=== PATIENT | female | born 1975 | race African-American/Black ===

== ENCOUNTER 2016-11-15 15:06 | Inpatient (IN) | payer BC ==
--- NOTE | ~2016-11-15 | DS ---
Discharge Summary [facility] [address] [place]. [address] NAME: SHERITA PATTERSON : 71 STATUS : DIS IN PAT#: [id number] AGE: 41 ADM/REG DATE : 11/15/16 MR#: [id number] REPORT SERV DATE: 11/20/16 DICTATED BY: DATE: REPORT STATUS : Draft TRANSCRIBED BY: MODL DATE: 11/19/16 ADMISSION DATE: 11/15/2016 DISCHARGE DATE: 11/19/2016 DISCHARGE DIAGNOSES: 1. Right upper lobe pneumonia suspected. 2. Human immunodeficiency virus/acquired immunodeficiency syndrome/pancytopenia. 3. Metastatic rectal cancer. 4. Hypoglycemia. 5. Hypotension, chronic. 6. Severe malnutrition/cachexia. 7. Thrush. CONSULTATIONS: Dr. Dinero, Palliative Care. PERTINENT TESTS AND PROCEDURES: 1. Chest x-ray, 11/15/2016, impression: New right upper lobe airspace disease consistent with pneumonia. Numerous small bilateral lung nodules consistent with metastatic disease. No pneumothorax or pleural effusions. 2. Chest x-ray, 11/17/2016, impression: No acute cardiopulmonary disease. Persistent right upper lobe airspace disease and pulmonary nodules. No significant change since 11/15/2016 imaging. 3. Two units packed red blood cells transfused, 11/15/2016. 4. One unit of platelets transfused, 11/16/2016. CHIEF COMPLAINT UPON ADMISSION: Need for blood transfusion. HOSPITAL COURSE: Please refer to history and physical dated 11/16/[address] Lamberto Jerez for complete details pertaining to the patient's initial presentation upon admission and health history. Briefly, the patient is a 41-year-old female, who is well known to our service, who presents with a complicated medical history to include metastatic rectal cancer, previously untreated HIV, and recent hospitalization for colovaginal fistula, status post ostomy. The patient was recently placed on hospice prior to this admission. The patient presented to the hospital on 11/15/2016 with complaints of coughing and request for "blood transfusion." 1. Likely right upper lobe pneumonia. The patient reported recent exposure to respiratory illness in her household prior to this admission. Chest x-ray obtained was suspicious for right upper lobe airspace disease consistent with pneumonia. The patient was initially placed on antibiotic, but refused treatment up until yesterday, at which time, the patient was placed on IV Zosyn. Sputum culture collected 11/17/2016 is pending. Final Gram stain on specimen indicates rare yeast, less than 25 epithelial cells, less than 10 white blood cells, few gram-positive bacilli, and few gram-negative bacilli. Procalcitonin is elevated and reported to be 5.43. The patient's antibiotic Discharge Summary [address] [place]. [address] NAME: SHERITA PATTERSON : 71 STATUS : DIS IN PAT#: [id number] AGE: 41 ADM/REG DATE : 11/15/16 MR#: [id number] REPORT SERV DATE: 11/20/16 DICTATED BY: DATE: REPORT STATUS : Draft TRANSCRIBED BY: MODL DATE: 11/19/16 therapy at discharge will be determined per hospice. 2. HIV/AIDS/pancytopenia. The patient is still refusing treatment with Stribild secondary to large pill size and complaints of difficulty swallowing. Upon admission, the patient's hemoglobin was reported to be 3.37. Since receiving 2 units of packed red blood cells on the 11/15/2016, hemoglobin has remained fairly stable and is reported to be 7.4 at the time of discharge. Platelets were reported to be 10 upon admission. The patient received one unit of platelets and initial response was increased to 89. However, since that time, platelets have continued to trend downward and are 27 on the day of discharge. No additional interventions will be initiated secondary to the patient's decision to resume care under hospice at home. 3. Metastatic rectal cancer. The patient has poor prognosis. She recently requested discharge from hospice care to be admitted to the hospital for evaluation of acute onset of cough and need for blood transfusion. The patient is not a candidate for any future treatment in the setting of metastatic rectal cancer and HIV/AIDS. Hospice will manage plan of care from this point forward. 4. Hypoglycemia. The patient has history of hypoglycemia related to poor p.o. intake and disease progression. The patient's blood glucose was reported to be 20 yesterday. The patient responded to treatment with 0.5 amp D50. Glucose is stable today at 130. 5. Sevelamer malnutrition/cachexia. This is secondary to metastatic rectal cancer and HIV/AIDS. We will continue to encourage p.o. intake if the patient can tolerate. 6. Thrush. This is chronic secondary to underlying disease state. The patient has received Diflucan and Mycostatin during this admission. 7. Chronic blood-loss anemia. This is secondary to persistent rectal bleeding secondary to rectal mass. DISCHARGE CONDITION: At the time of discharge, the patient is hemodynamically stable. However very frail, weak, and cachectic. DISCHARGE DIET: Regular diet as the patient can tolerate. DISCHARGE MEDICATIONS: Medications will be reconciled per the direction of hospice. DISCHARGE INSTRUCTIONS: The patient will return home with resumption of care under hospice. All future plans of care will be directed under their organization. ROGELIO/MICHAEL CLYDE Smiley / [id number] CC: Marcos Suarez WINIFRED
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
[~2016-11-15 15:06] MED LIST: ANTIBIOTICS PO; AUG875 PO; BACDS PO; CHEMO THERAPY IV; DIAPER TOP; DIL2TAB; EMBEDA PO; EMBEDA1 CA1 PO; EMBEDA1 CA2 PO; FLORASTOR250 MG PO; GOODY'S EX-STR1 EAC1 PO; MIRALAXPKT; MORPHINE; MSCONT15 PO; MYCOSCROI TOP; NORCO1 TA1 PO; NORCO1 TA2 PO; NORCO1 TAB PO; OXYCOD PO; PERCOCET1 TA4 PO; PRILO PO; ROXICODONE15 MG PO; SILVADENE1 % TOP; STRIBILD TABLE1 EACH PO; T PO; VALTREX5 PO; VITAMIN C100 MG PO; VITAMIN D3 PO; ZITH600 PO; ZOFRAN4 PO; ZYVOXPO PO
[2016-11-15 15:27] LABS: INTERNATIONAL NORMAL RATI 1.3 UNITS (-); PARTIAL THROMBO TIME 37.5 SEC (22.5-37.2)
[2016-11-15 15:29] LABS: PROTIME (NOT ORD) 16.4 SEC (12.0-14.5)
[2016-11-15 15:31] LABS: ER CBC TAT 0 Hrs 15 Mins; MEAN CORPUSCULAR HEMOGLOB 28.7 pg (26.0-34.0); RBC DISTRIBUTION WIDTH 18.9 % (12.0-16.0); WHITE BLOOD CELLS 2.6 10/3/uL (4.5-10.5)
[2016-11-15 15:35] LABS: BUN (BLOOD UREA NITROGEN) 27 MG/DL (6-23); CHEST PAIN PROFILE TAT 0 Hrs 19 Mins; CHLORIDE, SERUM 111 MMOL/L (96-112); CO2 (CARBON DIOXIDE) 26 MMOL/L (24-34); CREATININE 1.07 MG/DL (0.55-1.02); GFR AFRICAN AMERICAN 74 ML/MIN (>=60); GFR NON AFRICAN AMERICAN 64 ML/MIN (>=60); GLUCOSE, SERUM 73 MG/DL (60-99); POTASSIUM, SERUM 3.9 MMOL/L (3.5-5.3); SODIUM, SERUM 144 MMOL/L (135-148); TROPONIN I <0.02 NG/ML (<0.05)
[2016-11-15 15:41] LABS: HEMATOCRIT 11.2 % (36.0-48.0); HEMOGLOBIN 3.3 g/dL (12.0-16.0); MEAN CORPUS HGB CONC 29.5 g/dL (32.0-36.0); MEAN CORPUSCULAR VOLUME 97.4 fL (80-100); PLATELET COUNT 10 10/3/uL (150-400); RED CELL COUNT 1.15 10/6/uL (4.0-5.6)
[2016-11-15 15:44] LABS: MANUAL DIFF YES %
[2016-11-15] MEDS ORDERED: COMP10B PO (15:46)
[2016-11-15] MEDS ORDERED: DSS PO (15:46)
[2016-11-15] MEDS ORDERED: MSCONT100 PO (15:48)
[2016-11-15] MEDS ORDERED: NYS500UDL PO (15:49)
[2016-11-15] MEDS ORDERED: ROXICODONE30 MG PO (15:49)
[2016-11-15] MEDS ORDERED: STRIBILD TABLE1 EACH PO (15:50)
[2016-11-15] MEDS ORDERED: VITAMIN D2000 UNIT PO (15:50)
[2016-11-15] MEDS ORDERED: LIDOCAINE (15:52)
[2016-11-15 16:45] LABS: SEGMENTED NEUTROPHIL (0) 71 %; TOTAL NUCLEATED CELLS 100
[2016-11-15 16:46] LABS: ANISOCYTOSIS 1+ (5-10/OIF) (0-5/OIF); BAND NEUTROPHILS 18 %; ER DIFF TAT 1 Hrs 29 Mins; LYMPHOCYTES 5 %; LYMPHOCYTES ABSOLUTE (CALC) 0.13 10/3/uL (0.67-4.30); MONOCYTES 6 %; MONOCYTES ABSOLUTE (CALC) 0.16 10/3/uL (0.21-1.20); NEUTROPHILS ABSOLUTE (CALC) 2.31 10/3/uL (2.02-8.40); TOXIC GRANULATION 2+
[2016-11-15 16:47] LABS: POIKILOCYTOSIS 1+ (5-10/OIF) (0-5/OIF)
[2016-11-15] MEDS ORDERED: HYDROMORPHONE PO (17:41)
[2016-11-16 04:48] LABS: MEAN CORPUSCULAR HEMOGLOB 28.9 pg (26.0-34.0); MEAN PLATELET VOLUME 8.7 fL (9.2-13.0); RBC DISTRIBUTION WIDTH 19.8 % (12.0-16.0)
[2016-11-16 04:50] LABS: HEMATOCRIT 23.3 % (36.0-48.0); HEMOGLOBIN 7.9 g/dL (12.0-16.0); MANUAL DIFF YES %; MEAN CORPUS HGB CONC 33.9 g/dL (32.0-36.0); MEAN CORPUSCULAR VOLUME 85.3 fL (80-100); PLATELET COUNT 89 10/3/uL (150-400); RED CELL COUNT 2.73 10/6/uL (4.0-5.6); WHITE BLOOD CELLS 2.4 10/3/uL (4.5-10.5)
[2016-11-16 05:01] LABS: BUN (BLOOD UREA NITROGEN) 25 MG/DL (6-23); CALCIUM, SERUM 7.1 MG/DL (8.5-10.4); CHLORIDE, SERUM 111 MMOL/L (96-112); CO2 (CARBON DIOXIDE) 23 MMOL/L (24-34); CREATININE 0.97 MG/DL (0.55-1.02); GFR AFRICAN AMERICAN 83 ML/MIN (>=60); GFR NON AFRICAN AMERICAN 72 ML/MIN (>=60); POTASSIUM, SERUM 3.8 MMOL/L (3.5-5.3); SODIUM, SERUM 145 MMOL/L (135-148)
[2016-11-16 05:04] LABS: GLUCOSE, SERUM 97 MG/DL (60-99)
[2016-11-16 05:15] LABS: ANISOCYTOSIS 1+ (5-10/OIF) (0-5/OIF); BAND NEUTROPHILS 16 %; LYMPHOCYTES 8 %; LYMPHOCYTES ABSOLUTE (CALC) 0.19 10/3/uL (0.67-4.30); MONOCYTES 8 %; MONOCYTES ABSOLUTE (CALC) 0.19 10/3/uL (0.21-1.20); NEUTROPHILS ABSOLUTE (CALC) 2.02 10/3/uL (2.02-8.40); PLATELET ESTIMATE DEC (ADEQUATE); SEGMENTED NEUTROPHIL (0) 68 %; TOTAL NUCLEATED CELLS 100
[2016-11-17 05:11] LABS: HEMATOCRIT 26.6 % (36.0-48.0); HEMOGLOBIN 8.9 g/dL (12.0-16.0); MEAN CORPUS HGB CONC 33.5 g/dL (32.0-36.0); MEAN CORPUSCULAR VOLUME 86.6 fL (80-100); MEAN PLATELET VOLUME 9.5 fL (9.2-13.0); PLATELET COUNT 48 10/3/uL (150-400); RBC DISTRIBUTION WIDTH 20.5 % (12.0-16.0); RED CELL COUNT 3.07 10/6/uL (4.0-5.6); WHITE BLOOD CELLS 2.7 10/3/uL (4.5-10.5)
[2016-11-17 05:12] LABS: MANUAL DIFF YES %
[2016-11-17 05:19] LABS: CALCIUM, SERUM 7.1 MG/DL (8.5-10.4); CHLORIDE, SERUM 110 MMOL/L (96-112); CO2 (CARBON DIOXIDE) 23 MMOL/L (24-34); CREATININE 0.81 MG/DL (0.55-1.02); GFR AFRICAN AMERICAN 103 ML/MIN (>=60); GFR NON AFRICAN AMERICAN 89 ML/MIN (>=60); POTASSIUM, SERUM 4.2 MMOL/L (3.5-5.3); SODIUM, SERUM 143 MMOL/L (135-148)
[2016-11-17 05:21] LABS: BUN (BLOOD UREA NITROGEN) 20 MG/DL (6-23); GLUCOSE, SERUM 60 MG/DL (60-99)
[2016-11-17 05:47] LABS: ANISOCYTOSIS 1+ (5-10/OIF) (0-5/OIF); BAND NEUTROPHILS 28 %; IMMATURE GRANS ABSOLUTE (CALC) 0.16 10/3/uL (0.0-0.11); LYMPHOCYTES 6 %; LYMPHOCYTES ABSOLUTE (CALC) 0.16 10/3/uL (0.67-4.30); METAMYELOCYTES 6 %; MONOCYTES 4 %; MONOCYTES ABSOLUTE (CALC) 0.11 10/3/uL (0.21-1.20); NEUTROPHILS ABSOLUTE (CALC) 2.27 10/3/uL (2.02-8.40); SEGMENTED NEUTROPHIL (0) 56 %; TOTAL NUCLEATED CELLS 100
[2016-11-18 05:11] LABS: HEMOGLOBIN 8.2 g/dL (12.0-16.0); MEAN CORPUS HGB CONC 32.8 g/dL (32.0-36.0); MEAN CORPUSCULAR HEMOGLOB 28.8 pg (26.0-34.0); MEAN CORPUSCULAR VOLUME 87.7 fL (80-100); MEAN PLATELET VOLUME 9.9 fL (9.2-13.0); RBC DISTRIBUTION WIDTH 19.7 % (12.0-16.0); RED CELL COUNT 2.85 10/6/uL (4.0-5.6)
[2016-11-18 05:25] LABS: PLATELET COUNT 26 10/3/uL (150-400); WHITE BLOOD CELLS 1.7 10/3/uL (4.5-10.5)
[2016-11-18 05:26] LABS: MANUAL DIFF YES %
[2016-11-18 05:28] LABS: BUN (BLOOD UREA NITROGEN) 22 MG/DL (6-23); CALCIUM, SERUM 7.5 MG/DL (8.5-10.4); CHLORIDE, SERUM 111 MMOL/L (96-112); CO2 (CARBON DIOXIDE) 22 MMOL/L (24-34); CREATININE 0.94 MG/DL (0.55-1.02); GFR AFRICAN AMERICAN 86 ML/MIN (>=60); GFR NON AFRICAN AMERICAN 74 ML/MIN (>=60); GLUCOSE, SERUM 56 MG/DL (60-99); POTASSIUM, SERUM 4.6 MMOL/L (3.5-5.3); SODIUM, SERUM 143 MMOL/L (135-148)
[2016-11-18 06:35] LABS: ANISOCYTOSIS 1+ (5-10/OIF) (0-5/OIF); BAND NEUTROPHILS 28 %; LYMPHOCYTES 6 %; MONOCYTES 6 %; SEGMENTED NEUTROPHIL (0) 60 %; TOTAL NUCLEATED CELLS 100
[2016-11-18 07:07] LABS: PROCALCITONIN 5.81 ng/mL (<0.5)
[2016-11-18 12:42] LABS: ALBUMIN 0.7 G/DL (3.5-5.0); ALKALINE PHOSPHATASE 247 U/L (45-117); SGPT(ALT) 11 U/L (5-65); TOTAL BILIRUBIN 0.3 MG/DL (0-1.2); TOTAL PROTEIN 6.4 G/DL (6.0-8.5)
[2016-11-18 12:43] LABS: DIRECT BILIRUBIN < 0.1 MG/DL (0.0-0.4); INDIRECT BILIRUBIN(NOT ORDER) 0.2 MG/DL (0.1-0.9); SGOT(AST) 44 U/L (5-40)
[2016-11-19 05:09] LABS: HEMATOCRIT 22.9 % (36.0-48.0); HEMOGLOBIN 7.4 g/dL (12.0-16.0); MEAN CORPUS HGB CONC 32.3 g/dL (32.0-36.0); MEAN CORPUSCULAR VOLUME 86.7 fL (80-100); RBC DISTRIBUTION WIDTH 19.6 % (12.0-16.0); RED CELL COUNT 2.64 10/6/uL (4.0-5.6)
[2016-11-19 05:12] LABS: MANUAL DIFF YES %; PLATELET COUNT 27 10/3/uL (150-400); WHITE BLOOD CELLS 1.9 10/3/uL (4.5-10.5)
[2016-11-19 05:15] LABS: BUN (BLOOD UREA NITROGEN) 20 MG/DL (6-23); CALCIUM, SERUM 7.3 MG/DL (8.5-10.4); CHLORIDE, SERUM 110 MMOL/L (96-112); CO2 (CARBON DIOXIDE) 22 MMOL/L (24-34); CREATININE 0.87 MG/DL (0.55-1.02); GFR AFRICAN AMERICAN 95 ML/MIN (>=60); GFR NON AFRICAN AMERICAN 82 ML/MIN (>=60); POTASSIUM, SERUM 4.3 MMOL/L (3.5-5.3); SODIUM, SERUM 142 MMOL/L (135-148)
[2016-11-19 05:17] LABS: GLUCOSE, SERUM 130 MG/DL (60-99)
[2016-11-19 06:00] LABS: SEGMENTED NEUTROPHIL (0) 75 %; TOTAL NUCLEATED CELLS 100
[2016-11-19 06:01] LABS: ANISOCYTOSIS 1+ (5-10/OIF) (0-5/OIF); BAND NEUTROPHILS 11 %; LYMPHOCYTES 14 %; LYMPHOCYTES ABSOLUTE (CALC) 0.27 10/3/uL (0.67-4.30); NEUTROPHILS ABSOLUTE (CALC) 1.63 10/3/uL (2.02-8.40); PLATELET ESTIMATE DEC (ADEQUATE)
[2016-11-19 06:13] LABS: PROCALCITONIN 5.43 ng/mL (<0.5)
[2016-11-19] MEDS ORDERED: . (12:34)
== END 2016-11-19 17:30 | disposition hospice, home (50) | DRG 974 ==
LOC: ER 15:06 → 4EA 17:21
PROVIDERS: Emergency Medicine; Internal Medicine
PROC: 30233N1 Transfusion of Nonautologous Red Blood Cells into Peripheral Vein, Percutaneous Approach (ICD-10-PCS; principal; 2016-11-15)
PROC: 30233R1 Transfusion of Nonautologous Platelets into Peripheral Vein, Percutaneous Approach (ICD-10-PCS; 2016-11-16)
DX: J18.1 Lobar pneumonia, unspecified organism (principal); B20 Human immunodeficiency virus [HIV] disease; E43 Unspecified severe protein-calorie malnutrition; I95.9 Hypotension, unspecified; C20 Malignant neoplasm of rectum; K62.5 Hemorrhage of anus and rectum; D62 Acute posthemorrhagic anemia; Z68.1 Body mass index [BMI] 19.9 or less, adult; B37.9 Candidiasis, unspecified
CPT/HCPCS: 36415; 36430; 71010; 80048; 80076; 82962; 83735; 83880; 84145; 84484; 85025; 85610; 85730; 86850; 86900; 86901; 86920; 87070; 87205; 94640; 99291; A9270-GY; J1170; J1450; J2543; P9016; P9035